=== PATIENT | male | born 1990 | race Caucasian/White ===

== ENCOUNTER 2016-10-12 17:14 | Inpatient (IN) | payer MEDICAID ==
[~2016-10-12] VITALS: Ht 172.7 cm; Wt 104.3 kg
[2016-10-12] MEDS ORDERED: ACETAMINOPHEN 325 MG TAB ONE (17:23)
[2016-10-12] MEDS ORDERED: SODIUM CHLORIDE 0.9% 2,000 ML ONE (18:39)
[2016-10-12] MEDS ORDERED: VANCOMYCIN 2,000 MG in SODIUM CHLORIDE 0.9% 500 ML IV ONE (19:05)
[2016-10-12] MEDS ORDERED: PIPERACIL/TAZO 4.5GM/100ML 100 ML IV ONE (19:10)
[2016-10-12 21:15] VITALS: BP_SYST 146; RESP 20; TEMP 98.9
[2016-10-12] MEDS ORDERED: MAG HYDROX 30 ML UDC PO PRN (21:25)
[2016-10-12] MEDS ORDERED: MORPHINE 2 MG/ML SYR IV PRN (21:25)
[2016-10-12] MEDS ORDERED: ALU/MAG/SIM 30 ML UDC PO PRN (21:25)
[2016-10-12] MEDS ORDERED: ONDANSETRON 4 MG VIAL IV PRN (21:25)
[2016-10-12] MEDS ORDERED: BISACODYL EC 5 MG TAB PO PRN (21:25)
[2016-10-12] MEDS ORDERED: TEMAZEPAM 15 MG CAP PO PRN (21:25)
[2016-10-12] MEDS ORDERED: BISACODYL 10 MG SUPP RECTAL PRN (21:25)
[2016-10-12] MEDS ORDERED: SALINE FLUSH 10 ML FLUSH PRN (21:25)
[2016-10-12 22:36] VITALS: Ht 172.7 cm; Wt 104.3 kg
[2016-10-12] MEDS: ACETAMINOPHEN 325 MG TAB PO PRN (23:20)
[2016-10-12 23:25] VITALS: BP_SYST 142; RESP 20; TEMP 99.7
[2016-10-13] VITALS (8 sets, daily range): BP systolic 121–157; RESP 16–18; TEMP 97.7–101.8
[2016-10-13] MEDS: CLINDAMYCIN 600 MG in DEXTROSE 5% 50 ML IV SCH ×4 (00:30→23:14)
[2016-10-13] MEDS: SODIUM CHLORIDE 0.9% 1,000 ML IV SCH ×2 (00:30→12:41)
[2016-10-13] MEDS ORDERED: Ibuprofen 400 MG TAB PO ONE (00:45)
[2016-10-13] MEDS ORDERED: Ibuprofen 400 MG TAB PO PRN (00:45)
[2016-10-13] MEDS: ACETAMINOPHEN 325 MG TAB PO PRN ×3 (05:18→23:12)
[2016-10-13] MEDS: SODIUM CHLORIDE 0.9% FLUSH BAG 500 ML IV SCH (05:19)
[2016-10-13] MEDS: SALINE FLUSH 10 ML FLUSH SCH ×2 (07:46→22:46)
[2016-10-13] MEDS: ENOXAPARIN 40 MG/0.4 ML SYR SUBQ SCH (08:50)
[2016-10-14] MEDS: SODIUM CHLORIDE 0.9% 1,000 ML IV SCH (00:13)
[2016-10-14 02:09] VITALS: BP_SYST 123; RESP 18; TEMP 98.3
[2016-10-14] MEDS: SODIUM CHLORIDE 0.9% FLUSH BAG 500 ML IV SCH (05:57)
[2016-10-14 07:00] VITALS: BP_SYST 109; RESP 18; TEMP 97.5
[2016-10-14] MEDS: SALINE FLUSH 10 ML FLUSH SCH ×2 (07:49→20:41)
[2016-10-14] MEDS: CLINDAMYCIN 600 MG in DEXTROSE 5% 50 ML IV SCH (08:14)
[2016-10-14] MEDS: ENOXAPARIN 40 MG/0.4 ML SYR SUBQ SCH (08:15)
[2016-10-14] MEDS ORDERED: PHARMACY TO DOSE ZOSYN IV SCH (10:30)
[2016-10-14] MEDS ORDERED: PHARMACY TO DOSE VANCOMYCIN IV SCH (10:30)
[2016-10-14] MEDS: VANCOMYCIN 1,750 MG in SODIUM CHLORIDE 0.9% 500 ML IV SCH ×2 (11:02→19:04)
[2016-10-14] MEDS: PIPERACIL/TAZO 3.375GM/50ML 50 ML IV SCH ×3 (11:03→22:53)
[2016-10-14 12:15] VITALS: BP_SYST 152; RESP 18; TEMP 98.3
[2016-10-14 15:00] VITALS: BP_SYST 134; RESP 18; TEMP 98.3
[2016-10-14 20:24] VITALS: BP_SYST 140; RESP 18; TEMP 98.3
[2016-10-14] MEDS: LORAZEPAM 2 MG/ML VIAL IV PRN (22:14)
[2016-10-14 23:02] VITALS: BP_SYST 137; RESP 18; TEMP 98.1
[2016-10-15 02:15] VITALS: BP_SYST 148; RESP 18; TEMP 98.3
[2016-10-15] MEDS: VANCOMYCIN 1,750 MG in SODIUM CHLORIDE 0.9% 500 ML IV SCH ×3 (03:12→18:28)
[2016-10-15] MEDS: SODIUM CHLORIDE 0.9% FLUSH BAG 500 ML IV SCH (03:12)
[2016-10-15] MEDS: PIPERACIL/TAZO 3.375GM/50ML 50 ML IV SCH ×3 (05:50→17:49)
[2016-10-15 07:59] VITALS: BP_SYST 136; RESP 16; TEMP 97.8
[2016-10-15] MEDS: SALINE FLUSH 10 ML FLUSH SCH ×2 (08:55→20:00)
[2016-10-15] MEDS: ENOXAPARIN 40 MG/0.4 ML SYR SUBQ SCH (08:56)
[2016-10-15 11:20] VITALS: BP_SYST 141; RESP 16; TEMP 98
[2016-10-15 15:57] VITALS: BP_SYST 139; RESP 16; TEMP 98.6
[2016-10-15 18:34] VITALS: BP_SYST 145; RESP 18; TEMP 98
[2016-10-15] MEDS: MORPHINE 4 MG/ML SYR IV PRN (21:14)
[2016-10-15] MEDS: LORAZEPAM 2 MG/ML VIAL IV PRN (21:20)
[2016-10-16] VITALS: BP_SYST 140; RESP 20; TEMP 98.2
[2016-10-16] MEDS: PIPERACIL/TAZO 3.375GM/50ML 50 ML IV SCH ×2 (01:05→06:38)
[2016-10-16] MEDS: MORPHINE 4 MG/ML SYR IV PRN (01:21)
[2016-10-16 04:00] VITALS: BP_SYST 134; RESP 18; TEMP 98.4
[2016-10-16] MEDS: VANCOMYCIN 1,750 MG in SODIUM CHLORIDE 0.9% 500 ML IV SCH (04:01)
[2016-10-16] MEDS: SODIUM CHLORIDE 0.9% FLUSH BAG 500 ML IV SCH (06:37)
[2016-10-16 07:22] VITALS: BP_SYST 135; RESP 18; TEMP 98.4
[2016-10-16] MEDS: SALINE FLUSH 10 ML FLUSH SCH (07:54)
[2016-10-16] MEDS: ENOXAPARIN 40 MG/0.4 ML SYR SUBQ SCH (08:29)
[2016-10-16 10:58] VITALS: BP_SYST 135; RESP 18; TEMP 98.4
== END 2016-10-16 11:43 | disposition home or self-care (01) | DRG 872 ==
LOC: ENRESERVTM → ENRESERVDT → ER 17:14 → ENPENDDIS 20:31 → EMR 20:31 → 2NO 21:13
PROVIDERS: ADMIT Family Medicine; ATTEND Family Medicine
CPT/HCPCS: 36415; 71010; 80048; 80053; 81001; 83605; 85025; 87040; 87088; 93970; 99223; 99232; 99233; 99239